=== PATIENT | female | born 1995 | race Caucasian/White ===

== ENCOUNTER 2019-12-27 01:26 | Emergency (ER) | payer OTHER ==
[~2019-12-27] VITALS: Ht 154.9 cm; Wt 85.7 kg
[~2019-12-27 01:26] MED LIST: ACETAMINOPHEN-1 EAC1 PO; ADDERALL XR 2020 MG PO; IBUPROFEN 800800 M1 PO; MONONESSA1 EACH PO; PROZAC20 MG PO; PYRIDIUM100 M1 PO; TRAZODONE HCL100 MG PO; XANAX 0.5 MG0.5 M1 PO
[2019-12-27 02:29] LABS: HEMOGLOBIN 13.9 gm/dL (12.0-15.0); MPV 7.8 fl. (7.2-11.1)
[2019-12-27 02:31] LABS: CALCIUM 7.7 mg/dL (8.5-10.1); POTASSIUM 3.7 mmol/L (3.5-5.1)
[2019-12-27 02:33] LABS: HEMATOCRIT 41.4 % (37.0-47.0); MCH 32.9 pg (26.0-34.0); MCHC 33.6 g/dL (28.0-37.0); MCV 98.1 fL (80.0-100.0); NUCLEATED RBCS 0 /100WBC; PLATELET COUNT* 349 thou/uL (150-400); RBC 4.22 mil/uL (4.20-5.00); RDW-CV 14.1 % (10.5-14.5); WBC 9.6 thou/uL (4.0-11.0)
[2019-12-27 02:35] LABS: TOTAL BILIRUBIN 0.2 mg/dL (<0.1-1.0)
[2019-12-27 02:45] LABS: ACETAMINOPHEN < 2 ug/mL (10-30); ALCOHOL 249 mg/dL (<10); SALICYLATE < 2.8 mg/dL (2.8-20.0)
[2019-12-27 03:56] LABS: ABSOLUTE BASOPHILS 0.1 thou/uL (0.0-0.2); ABSOLUTE EOSINOPHILS 1.1 thou/uL (0.0-0.7); ABSOLUTE LYMPHOCYTES 5.5 thou/uL (0.8-5.3); ABSOLUTE MONOCYTES 0.5 thou/uL (0.0-1.2); ABSOLUTE NEUTROPHILS 2.5 thou/uL (1.6-8.1); PLATELET ESTIMATE ADEQUATE
[2019-12-27 09:47] LABS: URINE BLOOD NEGATIVE (Negative); URINE CLARITY CLEAR; URINE COLOR YELLOW; URINE GLUCOSE-RANDOM NEGATIVE (Negative); URINE KETONES NEGATIVE (Negative); URINE LEUKOCYTES-REFLEX NEGATIVE (Negative); URINE NITRITE-REFLEX NEGATIVE (Negative); URINE PROTEIN NEGATIVE (Negative); URINE SPECIFIC GRAVITY 1.025 (1.005-1.030); URINE UROBILINOGEN 0.2 E.U./dl (0.2-1.0)
[2019-12-27 09:49] LABS: ICTOTEST (BILI CONFIRMATORY) Negative (Negative); URINE BILIRUBIN 1+ (Negative)
[2019-12-27 09:54] LABS: AMP/METHAMP Negative (Negative); BARBITURATES Negative (Negative); BENZODIAZEPINES Negative (Negative); COCAINE Negative (Negative); METHADONE Negative (Negative); OPIATES POSITIVE (Negative); PCP Negative (Negative); THC POSITIVE (Negative)
[2019-12-27] MEDS ORDERED: BUSPIRONE HCL10 MG PO (15:16)
[2019-12-27] MEDS ORDERED: CLONAZEPAM 0.50.5 M1 PO (15:17)
[2019-12-27] MEDS ORDERED: LAMOTRIGINE300 MG PO (15:18)
[2019-12-27] MEDS ORDERED: LEXAPRO20 MG PO (15:18)
[2019-12-27] MEDS ORDERED: EFFEXOR XR150 MG PO (15:19)
[2019-12-27] MEDS ORDERED: VISTARIL 25 MG25 M1 PO (15:19)
[2019-12-27 16:16] VITALS: BP 147/91
== END 2019-12-27 16:36 ==
LOC: M.ERS 01:26
PROVIDERS: Emergency Medicine
DX: R45.851 Suicidal ideations (principal); F10.129 Alcohol abuse with intoxication, unspecified; Y90.8 Blood alcohol level of 240 mg/100 ml or more; Z20.828 Contact with and (suspected) exposure to other viral communicable diseases; Z88.0 Allergy status to penicillin; Z88.8 Allergy status to other drugs, medicaments and biological substances; Z79.899 Other long term (current) drug therapy